=== PATIENT | female | born 1945 ===

== ENCOUNTER 2020-03-25 07:42 | Day surgery (SDC) | payer OTHER | END 2020-03-25 12:55 | disposition home or self-care (01) | LOC: CIR.AMB 07:42 → AMB-ENDOS 07:42 → CIR.AMB 13:15 | PROVIDERS: ATTEND Surgery | DX: K62.89 Other specified diseases of anus and rectum (principal); K64.8 Other hemorrhoids; Z20.828 Contact with and (suspected) exposure to other viral communicable diseases ==